=== PATIENT | male | born 1960 | race Caucasian/White ===

== ENCOUNTER 2017-10-07 20:20 | Emergency (ER) | payer BC ==
[2017-10-07] MEDS ORDERED: Gentamicin 0.3% Ophth Soln 5 ML Bottle EYELF ONE (20:21)
[2017-10-07] MEDS ORDERED: Tetracaine HCl/PF 0.5% 4 ML Bottle EYELF ONE (20:36)
[2017-10-07] MEDS ORDERED: Fluorescein 1 MG Ophth Strip EYELF ONE (20:49)
--- NOTE | 2017-10-07 21:06 | EDM.PDOC ---
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 rotator cuff surg. andrt. knee surg Neurological History: Reports: Concussion - Infectious Disease History Infectious Disease History: Reports: None Social & Family History - Family History Family Medical History: Noncontributory - Tobacco Use Smoking Status *Q: Never Smoker Second Hand Smoke Exposure: No - Caffeine Use Caffeine Use: Reports: Soda Other Caffeine Use: 12oz /day - Recreational Drug Use Recreational Drug Use: No ED ROS GENERAL - Review of Systems Review Of Systems: ROS reveals no pertinent complaints other than HPI. ED EXAM GENERAL W FULL EYE - Physical Exam Exam: See Below Exam Limited By: No Limitations General Appearance: Alert, WD/WN, No Apparent Distress Eye Exam: Left Eye: Corneal Abrasion, Foreign Body Eyelids: Bilateral: Normal Appearance Conjunctiva & Sclera: Left: Injected Cornea Exam: Left: Foreign Body, Examined with Flourescein (abrasion) Extraocular Movements: Bilateral: Intact Pupillary Size: Bilateral: 4 mm Pupillary Reaction: Bilateral: Brisk Anterior Chamber: Bilateral: Normal Appearance Ears: Hearing Grossly Normal Throat/Mouth: Normal Voice, No Airway Compromise Head: Atraumatic Neck: Non-Tender, Full Range of Motion Respiratory/Chest: No Respiratory Distress Cardiovascular: Regular Rate, Rhythm GI/Abdominal: Soft, Non-Tender Neurological: Alert, Oriented, Normal Cognition, Normal Gait, No Motor/Sensory Deficits Psychiatric: Normal Affect, Normal Mood Skin Exam: Warm, Dry, Ecchymosis Lymphatic: No Adenopathy Course - Vital Signs Last Recorded V/S: Last Vital Signs Temp 37.6 C 10/07/17 20:29 Pulse 58 L 08/19/18 20:29 Resp 14 10/07/17 20:29 BP 155/85 H 10/07/17 20:29 Pulse Ox 98 10/07/17 20:29 - Orders/Labs/Meds Meds: Medications Discontinued Medications Generic Name Dose Route Start Last Admin Trade Name Lenore PRN Reason Stop Dose Admin Fluorescein Sodium 1 mg 10/07/17 20:49 10/07/17 20:52 Ful-Kezia EYELF 10/07/17 20:50 1 mg ONETIME ONE Administration Tetracaine HCl 2 ml 10/07/17 20:36 10/07/17 20:39 Tetracaine 0.5% Steri-Unit Katelyn EYELF 10/07/17 20:37 2 drop ASDIRECTED ONE Administration Departure - Departure Time of Disposition: 21:05 Disposition: Home, Self-Care 01 Clinical Impression: Corneal abrasion Qualifiers: Encounter type: initial encounter Laterality: left Qualified Code(s): S05.02XA - Injury of conjunctiva and corneal abrasion without foreign body, left eye, initial encounter Corneal FB (foreign body) Qualifiers: Encounter type: initial encounter Laterality: left Qualified Code(s): T15.02XA - Foreign body in cornea, left eye, initial encounter - Discharge Information Instructions: Corneal Abrasion, [id number] Additional Instructions: 1) keep eye clean don't rub eye 2) see eye doctor tomorrow if still feels irritated rx togo; gentamycin eye drops qid x 5 days
[2017-10-07] MEDS ORDERED: Gentamicin 0.3% Ophth Soln 5 ML Bottle ONE (21:12)
== END 2017-10-07 21:21 | disposition home or self-care (01) ==
LOC: DL.ED 20:20
DX: S05.02XA Injury of conjunctiva and corneal abrasion without foreign body, left eye, initial encounter (principal); T15.02XA Foreign body in cornea, left eye, initial encounter; X58.XXXA Exposure to other specified factors, initial encounter
CPT/HCPCS: 99282; A9270